=== PATIENT | male | born 1940 | race Caucasian/White ===

== ENCOUNTER 2018-02-27 02:51 | Outpatient (CLI) | payer MEDICARE ==
[~2018-02-27 02:51] MED LIST: ACET-1025 PO; ALLO100T15 PO; ALPH100C PO; ASPI-611 PO; CALC-793 PO; COLC0.6T69 PO; COU5T PO; CYAN-19 PO; FISH1CAP17 PO; HYDR-3964 PO; LEVO75TA56 PO; LOSA25TA96 PO; MELA5CAP PO; PIOG45TA18 PO; PRED5TAB49 PO; PSYL1PAC11 PO; PYRI50TA10 PO; ROSU5TAB PO; SITA100T11 PO; TRIA1CAP6 PO; ZOLP10TA PO; [UNRECOGNIZED DRUG - CODE] PO
== END 2018-02-27 23:59 | disposition home or self-care (01) ==
LOC: DIABETIC 02:51
PROVIDERS: ATTEND Specialist
DX: E11.65 Type 2 diabetes mellitus with hyperglycemia (principal); I10 Essential (primary) hypertension
CPT/HCPCS: G0108

== ENCOUNTER 2018-06-06 02:08 | Outpatient (CLI) | payer MEDICARE ==
[~2018-06-06 02:08] MED LIST changes: -PIOG45TA18 PO; +PIOG45TA65 PO
== END 2018-06-06 23:59 | disposition home or self-care (01) ==
LOC: DIABETIC 02:08
PROVIDERS: ATTEND Specialist
DX: E11.65 Type 2 diabetes mellitus with hyperglycemia (principal); F10.10 Alcohol abuse, uncomplicated; I10 Essential (primary) hypertension; Z79.82 Long term (current) use of aspirin; Z79.899 Other long term (current) drug therapy; Z88.2 Allergy status to sulfonamides; Z91.048 Other nonmedicinal substance allergy status; Z85.828 Personal history of other malignant neoplasm of skin; Z85.46 Personal history of malignant neoplasm of prostate; Z98.52 Vasectomy status
CPT/HCPCS: G0108

== ENCOUNTER 2018-09-06 02:28 | Outpatient (CLI) | payer MEDICARE | END 2018-09-06 23:59 | disposition home or self-care (01) | LOC: DIABETIC 02:28 | PROVIDERS: ATTEND Specialist | DX: E11.65 Type 2 diabetes mellitus with hyperglycemia (principal); I10 Essential (primary) hypertension; Z79.82 Long term (current) use of aspirin; Z79.01 Long term (current) use of anticoagulants; Z88.2 Allergy status to sulfonamides; Z91.041 Radiographic dye allergy status | CPT/HCPCS: G0108 ==

== ENCOUNTER 2018-12-12 04:39 | Outpatient (CLI) | payer MEDICARE | END 2018-12-12 23:59 | disposition home or self-care (01) | LOC: DIABETIC 04:39 | PROVIDERS: ATTEND Specialist | DX: E11.65 Type 2 diabetes mellitus with hyperglycemia (principal); I10 Essential (primary) hypertension; Z79.84 Long term (current) use of oral hypoglycemic drugs; Z79.82 Long term (current) use of aspirin; Z98.890 Other specified postprocedural states; Z88.0 Allergy status to penicillin; Z88.2 Allergy status to sulfonamides; Z91.048 Other nonmedicinal substance allergy status | CPT/HCPCS: G0108 ==

== ENCOUNTER 2019-03-13 04:30 | Outpatient (CLI) | payer MEDICARE ==
[~2019-03-13 04:30] MED LIST changes: -PYRI50TA10 PO; +PYRI50TA13 PO
== END 2019-03-13 23:59 | disposition home or self-care (01) ==
LOC: DIABETIC 04:30
PROVIDERS: ATTEND Specialist
DX: E11.65 Type 2 diabetes mellitus with hyperglycemia (principal); I10 Essential (primary) hypertension; Z79.01 Long term (current) use of anticoagulants; Z79.899 Other long term (current) drug therapy; Z88.2 Allergy status to sulfonamides; Z91.048 Other nonmedicinal substance allergy status
CPT/HCPCS: G0108

== ENCOUNTER 2019-06-14 02:12 | Outpatient (CLI) | payer MEDICARE ==
[~2019-06-14 02:12] MED LIST changes: -CYAN-19 PO; +CYAN100019 PO
== END 2019-06-14 23:59 | disposition home or self-care (01) ==
LOC: DIABETIC 02:12
PROVIDERS: ATTEND Specialist
DX: E11.65 Type 2 diabetes mellitus with hyperglycemia (principal); I10 Essential (primary) hypertension; Z72.89 Other problems related to lifestyle; Z79.82 Long term (current) use of aspirin; Z79.1 Long term (current) use of non-steroidal anti-inflammatories (NSAID); Z79.01 Long term (current) use of anticoagulants; Z79.899 Other long term (current) drug therapy; Z88.2 Allergy status to sulfonamides; Z88.8 Allergy status to other drugs, medicaments and biological substances; Z85.46 Personal history of malignant neoplasm of prostate; Z85.828 Personal history of other malignant neoplasm of skin
CPT/HCPCS: G0108

== ENCOUNTER 2019-09-19 08:22 | Outpatient (CLI) | payer MEDICARE | END 2019-09-19 23:59 | disposition home or self-care (01) | LOC: DIABETIC 08:22 | PROVIDERS: ATTEND Specialist | DX: E11.65 Type 2 diabetes mellitus with hyperglycemia (principal); I10 Essential (primary) hypertension; Z79.82 Long term (current) use of aspirin; Z79.899 Other long term (current) drug therapy; Z88.2 Allergy status to sulfonamides; Z88.8 Allergy status to other drugs, medicaments and biological substances | CPT/HCPCS: G0108 ==

== ENCOUNTER 2019-12-10 13:27 | Outpatient (CLI) | payer MEDICARE ==
[~2019-12-10 13:27] MED LIST changes: +BENZ-16 PO; +HYDR-3780 PO; -HYDR-3964 PO; +HYDR473S48 PO; +IPRA3AMP9 NEB; +LEVO500T2 PO; -LEVO75TA56 PO; +ONDA8TAB6 PO; -PIOG45TA65 PO; -PRED5TAB49 PO; -PSYL1PAC11 PO; -TRIA1CAP6 PO
[2019-12-10 14:22] LABS: ALBUMIN 2.4 G/DL (3.4-5.0); ANION GAP 2 (8-16); BLOOD UREA NITROGEN 12 MG/DL (7-18); BUN/CREATININE RATIO 12.6 (5.4-32.0); CALCIUM 8.7 MG/DL (8.5-10.1); CHLORIDE 103 MMOL/L (99-107); CREATININE 0.95 MG/DL (0.60-1.10); GLUCOSE 129 MG/DL (70-104); POTASSIUM 3.4 MMOL/L (3.5-5.1); SODIUM 139 MMOL/L (135-145); TOTAL CARBON DIOXIDE 34.2 MMOL/L (24-32); eGFR 76 ML/MIN
== END 2019-12-10 23:59 | disposition home or self-care (01) ==
LOC: LAB 13:27
PROVIDERS: ATTEND Internal Medicine Cardiovascular Disease
DX: R06.02 Shortness of breath (principal)
CPT/HCPCS: 36415; 80048; 83880

== ENCOUNTER 2019-12-19 03:11 | Outpatient (CLI) | payer MEDICARE ==
[~2019-12-19 03:11] MED LIST changes: -LEVO500T2 PO
== END 2019-12-19 23:59 | disposition home or self-care (01) ==
LOC: DIABETIC 03:11
PROVIDERS: ATTEND Specialist
DX: E11.65 Type 2 diabetes mellitus with hyperglycemia (principal)
CPT/HCPCS: G0108

== ENCOUNTER 2024-08-29 11:43 | Emergency (ER) | payer MEDICARE ==
[~2024-08-29] VITALS: Ht 175.3 cm; Wt 95.0 kg
[~2024-08-29 11:43] MED LIST changes: -ACET-1025 PO; +ALBU8.5H17 INH; +ALLO100T PO; -ALLO100T15 PO; -ALPH100C PO; -BENZ-16 PO; -CALC-793 PO; -COLC0.6T69 PO; -COU5T PO; -CYAN100019 PO; -FISH1CAP17 PO; -HYDR-3780 PO; +HYDR-4318 PO; -HYDR473S48 PO; -IPRA3AMP9 NEB; +LACT1CAP26 PO; -LOSA25TA96 PO; +LOSA50TA64 PO; +MELA3TAB39 PO; -MELA5CAP PO; -ONDA8TAB6 PO; -PYRI50TA13 PO; -ROSU5TAB PO; +ROSU5TAB51 PO; -SITA100T11 PO; +SITA100T15 PO; +TRIA1TAB3 PO; +WARF-55 PO; -ZOLP10TA PO; -[UNRECOGNIZED DRUG - CODE] PO
[2024-08-29 12:07] VITALS: BP 131/63; PULSE 63; TEMP 97.8; O2SAT 69
[2024-08-29 12:54] LABS: BASOPHILS % (AUTO) 0.4 % (0-1); EOSINOPHILS # (AUTO) 0.2 X10'3 (0-0.9); EOSINOPHILS % (AUTO) 2.7 % (0-6); HEMATOCRIT 37.6 % (42.0-52.0); HEMOGLOBIN 13.1 g/dl (14.0-17.9); LYMPHOCYTES # (AUTO) 0.9 X10'3 (1.1-4.8); LYMPHOCYTES % (AUTO) 11.4 % (21-51); MEAN CORPUSCULAR HEMOGLOBIN 33.8 PG (27.0-31.0); MEAN CORPUSCULAR HGB CONC 34.9 g/dL (33.0-36.5); MEAN CORPUSCULAR VOLUME 96.7 FL (78-98); MEAN PLATELET VOLUME 7.8 FL (7.4-10.4); MONOCYTES # (AUTO) 0.8 X10'3 (0-0.9); MONOCYTES % (AUTO) 9.5 % (2-12); NEUTROPHILS # (AUTO) 6.2 X10'3 (1.8-7.7); PLATELET COUNT 169 X10'3 (140-440); RED BLOOD COUNT 3.89 X10'6 (4.70-6.10); RED CELL DISTRIBUTION WIDTH 14.6 % (11.5-14.5); WHITE BLOOD COUNT 8.1 X10'3 (4.5-11.0)
[2024-08-29 13:09] LABS: ALANINE AMINOTRANSFERASE 26 U/L (12-78); ALBUMIN 3.6 G/DL (3.4-5.0); ALBUMIN/GLOBULIN RATIO 1.2 (1.1-1.5); ALKALINE PHOSPHATASE 53 IU/L (46-116); ANION GAP 7 (8-16); ASPARTATE AMINO TRANSFERASE 23 U/L (10-37); BILIRUBIN,TOTAL 2.3 MG/DL (0.1-1.0); BLOOD UREA NITROGEN 29 MG/DL (7-18); BUN/CREATININE RATIO 25.4 (10.0-20.0); CHLORIDE 104 MMOL/L (99-107); CREATININE 1.14 MG/DL (0.60-1.10); GLUCOSE 219 MG/DL (70-104); LIPASE 29 U/L (16-77); POTASSIUM 3.9 MMOL/L (3.5-5.1); SODIUM 140 MMOL/L (135-145); TOTAL CARBON DIOXIDE 29.3 MMOL/L (24-32); TOTAL PROTEIN 6.6 G/DL (6.4-8.2); eCRCL 47 ML/MIN; eGFR 61 ML/MIN
[2024-08-29 14:48] LABS: BILIRUBIN,URINE NEGATIVE (Neg); CLARITY,URINE CLEAR (Clear); COLOR,URINE YELLOW (Yellow); GLUCOSE, URINE NEGATIVE (Neg); KETONES,URINE NEGATIVE (Neg); LEUKOCYTE ESTERASE ,URINE NEGATIVE (Neg); NITRITES, URINE NEGATIVE (Neg); OCCULT BLOOD,URINE NEGATIVE (Neg); PROTEIN,URINE NEGATIVE (Neg)
[2024-08-29 14:50] LABS: UA COLLECTION TYPE CLN CATCH MIDSTREAM
[2024-08-29 15:16] VITALS: RESP 16
[2024-08-29] MEDS: ketorolac trometh 30MG/ML vial 30 MG/ML VIAL IM ONE (15:16)
== END 2024-08-29 15:47 | disposition home or self-care (01) ==
LOC: ER 11:43
DX: N20.0 Calculus of kidney (principal); I25.10 Atherosclerotic heart disease of native coronary artery without angina pectoris; E78.00 Pure hypercholesterolemia, unspecified; I10 Essential (primary) hypertension; E11.9 Type 2 diabetes mellitus without complications; Z88.0 Allergy status to penicillin; Z88.2 Allergy status to sulfonamides; Z88.8 Allergy status to other drugs, medicaments and biological substances; Z95.1 Presence of aortocoronary bypass graft; Z79.82 Long term (current) use of aspirin
CPT/HCPCS: 36415; 80053; 81003; 83690; 85025; 96372; 99283; J1885; 99284